=== PATIENT | male | born 1945 | race Caucasian/White ===

== ENCOUNTER → 2017-07-19 | Outpatient (CLI) | payer OTHER, MEDICARE ==
[~2017-07-19] MED LIST: EZET10TA18 PO; LISI1TAB5 PO; MULT-658 PO; OMEP-110 PO; ROSU20TA PO; TAMS-11 PO; TAMS0.4C2 PO
[2017-07-19 09:09] LABS: ASPARTATE AMINO TRANSFERASE 21 U/L (15-37); BLOOD UREA NITROGEN 20 mg/dL (7-18)
== END | disposition home or self-care (01) ==
LOC: STAR 08:07
PROVIDERS: ATTEND Urology
DX: Z01.818 Encounter for other preprocedural examination (principal)
CPT/HCPCS: 36415; 80053; 93005

== ENCOUNTER 2017-07-27 06:55 | Observation (INO) | payer OTHER, MEDICARE ==
[~2017-07-27] VITALS: Ht 177.8 cm; Wt 72.9 kg
[2017-07-27] MEDS ORDERED: LACTATED RINGERS 1,000 ML IV SCH (07:21)
[2017-07-27 07:24] VITALS: BP 165/94
[2017-07-27] MEDS ORDERED: LIDOCAINE 1%, 2ML SQ PRN (07:30)
[2017-07-27] MEDS ORDERED: MIDAZOLAM 1 MG/ML, 2ML ONE (08:24)
[2017-07-27] MEDS ORDERED: FENTANYL PF 250 MCG/5ML ONE (08:24)
[2017-07-27] MEDS ORDERED: LIDOCAINE-MPF 2% ,5ML ONE (08:26)
[2017-07-27 08:46] LABS: PATH.CAST-FLAG NOT PRESENT; SPERM-FLAG NOT PRESENT; SRC-FLAG NOT PRESENT; XTAL-FLAG NOT PRESENT; YLC-FLAG NOT PRESENT
[2017-07-27] MEDS ORDERED: CEFTRIAXONE 1,000 MG ONE ×2 (08:57→08:59)
[2017-07-27] MEDS ORDERED: NEOMY/POLYMYXIN B GU IRR. 1 ML IRRIG ONE ×2 (08:57→09:23)
[2017-07-27] MEDS ORDERED: CEFAZOLIN 1,000 MG ONE (09:39)
[2017-07-27] MEDS ORDERED: DEXAMETHASONE 4 MG/ML, 1ML ONE (09:39)
[2017-07-27] MEDS ORDERED: ONDANSETRON 2MG/ML, 2ML ONE (09:39)
[2017-07-27] MEDS ORDERED: PROPOFOL 10 MG/ML, 20ML ONE (09:39)
[2017-07-27] MEDS ORDERED: MIDAZOLAM 1 MG/ML, 2ML IV PRN (10:00)
[2017-07-27] MEDS ORDERED: ONDANSETRON 2MG/ML, 2ML IVPush PRN (10:00)
[2017-07-27] MEDS ORDERED: MEPERIDINE/PF 25MG/0.5ML IVPush PRN (10:00)
[2017-07-27] MEDS ORDERED: FENTANYL PF 100 MCG/2ML IV PRN (10:00)
[2017-07-27] MEDS ORDERED: DIAZEPAM 5 MG/ML, 2ML IVPush PRN (10:00)
[2017-07-27] MEDS ORDERED: LABETALOL 5MG/ML, 20ML IV PRN (10:00)
[2017-07-27] MEDS ORDERED: hydrALAzine 20 MG/ML, 1ML IV PRN (10:00)
[2017-07-27] MEDS ORDERED: ALBUTEROL/IPRATROPIUM 2.5MG/0.5MG, 3 ML NPPB PRN (10:00)
[2017-07-27] MEDS ORDERED: OXYcodone 5 MG/5 ML ORAL.SOL UDC PO PRN (10:00)
[2017-07-27] MEDS ORDERED: LORazepam 2 MG/ML, 1ML IVPush PRN (10:00)
[2017-07-27] MEDS ORDERED: ACETAMINOPHEN 325 MG TABLET PO PRN (10:00)
[2017-07-27] MEDS ORDERED: METOCLOPRAMIDE 5 MG/ML, 2ML IV PRN (10:00)
[2017-07-27] MEDS ORDERED: HYDROmorphone 1 MG/ML, 1ML IV PRN (10:00)
[2017-07-27] MEDS ORDERED: PROMETHAZINE 25 MG/ML, 1ML IV PRN (10:00)
[2017-07-27] MEDS ORDERED: OPIUM/BELLADONNA SUPP.RECT 16.2-60 MG ONE (10:52)
[2017-07-27] MEDS ORDERED: HYDROmorphone 1 MG/ML, 1ML ONE (10:57)
[2017-07-27] MEDS ORDERED: OXYcodone 5 MG/5 ML ORAL.SOL UDC ONE (11:32)
[2017-07-27 12:30] VITALS: BP 143/75
[2017-07-27] MEDS ORDERED: HYDROmorphone 2 MG/ML, 1ML IV PRN (13:30)
[2017-07-27] MEDS ORDERED: OXYcodone/APAP 5/325MG TABLET PO PRN (13:30)
[2017-07-27] MEDS ORDERED: CEFTRIAXONE PMX 1GM/50ML 50 ML IV SCH (13:30)
[2017-07-27] MEDS ORDERED: D5%-0.45NACL+KCL 20MEQ 1,000 ML IV SCH (13:30)
[2017-07-27] MEDS ORDERED: OPIUM/BELLADONNA SUPP.RECT 16.2-60 MG PR PRN (13:30)
[2017-07-27] MEDS: D5%-0.45NACL+KCL 20MEQ 1,000 ML IV SCH ×2 (16:37→21:13)
[2017-07-27 19:55] VITALS: BP 123/61
[2017-07-27] MEDS ORDERED: ATORVASTATIN 40 MG TABLET PO SCH (21:00)
[2017-07-28 00:21] VITALS: BP 106/56
[2017-07-28 03:09] VITALS: BP 97/47
[2017-07-28] MEDS: D5%-0.45NACL+KCL 20MEQ 1,000 ML IV SCH (04:41)
[2017-07-28] MEDS ORDERED: OMEPRAZOLE 20 MG CAPSULE.DR PO SCH (07:30)
[2017-07-28 08:29] VITALS: BP 123/54
[2017-07-28] MEDS ORDERED: CEFTRIAXONE PMX 1GM/50ML 50 ML IV SCH ×2 (08:30)
[2017-07-28] MEDS ORDERED: CEFD300C37 PO (08:44)
[2017-07-28] MEDS ORDERED: OXYC-302 PO (08:44)
[2017-07-28] MEDS ORDERED: HYDROCHLOROTHIAZIDE 12.5 MG CAPSULE PO SCH (09:00)
[2017-07-28] MEDS ORDERED: EZETIMIBE 10 MG TABLET PO SCH (09:00)
[2017-07-28] MEDS ORDERED: LISINOPRIL 20 MG TABLET PO SCH (09:00)
== END 2017-07-28 13:55 | disposition home or self-care (01) ==
LOC: OUT 06:55 → 4NOR 12:13 → OUT 12:42 → 4NOR 12:43 → DCLOUNGE 07-28 13:44
PROVIDERS: ADMIT Urology; ATTEND Urology
DX: N40.1 Benign prostatic hyperplasia with lower urinary tract symptoms (principal); N13.8 Other obstructive and reflux uropathy; R33.8 Other retention of urine; E78.5 Hyperlipidemia, unspecified; I10 Essential (primary) hypertension; E78.00 Pure hypercholesterolemia, unspecified; R97.20 Elevated prostate specific antigen [PSA]; K21.9 Gastro-esophageal reflux disease without esophagitis; Z87.891 Personal history of nicotine dependence
CPT/HCPCS: 52630; 81001; 87077; 87086; 87186; 88305; 96365; C1769; G0378; J0696; J1100; J1170; J2250; J2405; J2704; J3010; J3480; J3490; J0690

== ENCOUNTER 2020-02-23 13:09 | Outpatient (CLI) | payer OTHER, MEDICARE ==
[~2020-02-23 13:09] MED LIST changes: +CEFD300C37 PO; -EZET10TA18 PO; +EZET10TA70 PO; +LISI1TAB19 PO; -LISI1TAB5 PO; +OXYC-302 PO; -ROSU20TA PO; +ROSU20TA2 PO
[2020-02-23 13:47] LABS: CREATININE 1.18 mg/dL (0.7-1.3)
[2020-02-23] MEDS ORDERED: OMNIPAQUE 350 MG/ML, 100ML BOTTLE ONE (14:23)
== END 2020-02-23 23:59 | disposition home or self-care (01) ==
LOC: RAD 13:09
PROVIDERS: ATTEND Otolaryngology
DX: D37.030 Neoplasm of uncertain behavior of the parotid salivary glands (principal); K11.6 Mucocele of salivary gland
CPT/HCPCS: 10005; 36415; 70491; 76536; 82565; 88173; Q9967; 76942

== ENCOUNTER → 2020-08-15 | Outpatient (CLI) | payer OTHER, MEDICARE ==
[~2020-08-15] MED LIST changes: -LISI1TAB19 PO; +LISI1TAB39 PO
== END | disposition home or self-care (01) ==
LOC: CFH 11:03
PROVIDERS: ATTEND Internal Medicine Cardiovascular Disease
DX: I25.10 Atherosclerotic heart disease of native coronary artery without angina pectoris (principal); I10 Essential (primary) hypertension; E78.5 Hyperlipidemia, unspecified
CPT/HCPCS: 78452; 93017; 93306; A9502

== ENCOUNTER → 2020-10-28 | Outpatient (CLI) | payer OTHER, MEDICARE ==
[~2020-10-28] MED LIST changes: -OXYC-302 PO; +OXYC1TAB14 PO
== END | disposition home or self-care (01) ==
LOC: ROC 07:23
PROVIDERS: ATTEND Radiology Radiation Oncology
DX: C61 Malignant neoplasm of prostate (principal); I25.10 Atherosclerotic heart disease of native coronary artery without angina pectoris; I10 Essential (primary) hypertension; E78.5 Hyperlipidemia, unspecified
CPT/HCPCS: 99214; G0463

== ENCOUNTER 2020-11-12 07:01 | Outpatient (CLI) | payer OTHER, MEDICARE ==
[2020-11-12] MEDS ORDERED: LIDOCAINE/PF 1%, 30ML ONE (07:30)
[2020-11-12] MEDS ORDERED: FENTANYL PF 100 MCG/2ML ONE (07:30)
[2020-11-12] MEDS ORDERED: MIDAZOLAM 1 MG/ML, 5ML ONE (07:30)
== END 2020-11-12 23:59 | disposition home or self-care (01) ==
LOC: ROC 07:01
PROVIDERS: ATTEND Radiology Radiation Oncology
DX: C61 Malignant neoplasm of prostate (principal); I10 Essential (primary) hypertension; Z87.891 Personal history of nicotine dependence; Z88.0 Allergy status to penicillin; Z88.1 Allergy status to other antibiotic agents
CPT/HCPCS: 55876; 76942; 77332; 99156; A4648; J2250; J3010; J3490

== ENCOUNTER → 2020-11-20 | Outpatient (CLI) | payer OTHER, MEDICARE | END | disposition home or self-care (01) | LOC: RAD 13:22 | PROVIDERS: ATTEND Family Medicine | DX: M25.561 Pain in right knee (principal) ==

== ENCOUNTER → 2021-02-27 | Outpatient (CLI) | payer MEDICARE, OTHER | END | disposition home or self-care (01) | LOC: ROC 07:07 | PROVIDERS: ATTEND Radiology Radiation Oncology | DX: Z08 Encounter for follow-up examination after completed treatment for malignant neoplasm (principal); Z85.46 Personal history of malignant neoplasm of prostate | CPT/HCPCS: G0463 ==